=== PATIENT | female | born 1935 ===

== ENCOUNTER 2017-02-14 14:54 | Emergency (ER) | payer MEDICARE, MEDICAID ==
[2017-02-14 14:54] VITALS: BMI 25.0
[2017-02-14 15:54] VITALS: BP 139/71; PULSE 91; RESP 18; TEMP 98.8; O2SAT 98
[2017-02-14] MEDS ORDERED: Albuterol-Ipratrop 3 mg / 0.5 (3 ml) UD INH STA (16:18)
--- NOTE | 2017-02-14 16:25 | ED PDOC ---
HPI: General Adult Time Seen by Provider: 02/14/17 16:07 Chief Complaint (Nursing): Headache Chief Complaint (Provider): Fever/Cough History Per: Patient History/Exam Limitations: no limitations Onset/Duration Of Symptoms: Days (x3) Current Symptoms Are (Timing): Still Present Additional Complaint(s): Darleen Gonzalez is an 81 year old female that presents to the ED with a chief complaint of a cough with yellow phlegm and a tactile fever that she did not measure at home that she has been experiencing for the past three days. Patient also reports an associated sore throat that began along with the onset of her other symptoms, but resolved when she woke up this morning. She states that she took Tylenol at 2:00 PM today, and denies any chest pain or shortness of breath. Past Medical History Reviewed: Historical Data, Nursing Documentation, Vital Signs Vital Signs: Last Vital Signs Temp 98.8 F 02/14/17 15:51 Pulse 91 H 02/14/17 15:51 Resp 18 02/14/17 15:51 BP 139/71 02/14/17 15:51 Pulse Ox 98 02/14/17 16:28 - Medical History PMH: Anemia, Diabetes, HTN, Hyperlipidemia, Hypothyroidism Denies: Chronic Kidney Disease - Surgical History Surgical History: Appendectomy, Cholecystectomy - Family History Family History: States: Unknown Family Hx - Home Medications Home Medications: Ambulatory Orders Medication Instructions Recorded Alendronate [Fosamax] 70 mg PO DAILY 05/22/15 Anastrozole [Arimidex 1 mg Tab] 1 mg PO DAILY 05/22/15 Ergocalciferol [Vitamin D] 50,000 PO DAILY 05/22/15 Metformin Hydrochloride [Metformin] 850 mg PO DAILY 05/22/15 Albuterol 0.083% [Albuterol 0.083% 2.5 mg IH QID PRN #20 02/14/17 Inhal Elizabeth (2.5 mg/3 ml) UD] Azithromycin [Zithromax] 250 mg PO DAILY #6 tab 02/14/17 - Allergies Allergies/Adverse Reactions: Allergies Allergy/AdvReac Type Severity Reaction Status Date / Time No Known Allergies Allergy Verified 05/22/15 08:30 Review of Systems Constitutional: Positive for: Fever Cardiovascular: Negative for: Chest Pain Respiratory: Positive for: Cough (with yellow phlegm). Negative for: Shortness of Breath Physical Exam - Reviewed Nursing Documentation Reviewed: Yes Vital Signs Reviewed: Yes - Physical Exam Appears: Positive for: Non-toxic, No Acute Distress Head Exam: Positive for: ATRAUMATIC, NORMOCEPHALIC Skin: Positive for: Normal Color, Warm ENT: Positive for: Normal ENT Inspection Cardiovascular/Chest: Positive for: Regular Rate, Rhythm. Negative for: Murmur Respiratory: Positive for: Wheezing (diffuse bilateral wheezing in bases). Negative for: Normal Breath Sounds Neurologic/Psych: Positive for: Alert, Oriented. Negative for: Motor/Sensory Deficits - Laboratory Results Result Diagrams: 02/14/17 16:40 02/14/17 16:40 - ECG O2 Sat by Pulse Oximetry: 98 (RA) Pulse Ox Interpretation: Normal Medical Decision Making Medical Decision Making: Impression: Fever/Cough Plan: * CMP * CBC * Chest X-Ray * Albuterol 3 ml INH * Peak Flow Pre/Post Tx * Reevaluation CXR - Normal Scribe Attestation: Documented by Mackenzie East, acting as a scribe for Tomasa Hammer PA-C. Provider Scribe Attestation: All medical record entries made by the Scribe were at my direction and personally dictated by me. I have reviewed the chart and agree that the record accurately reflects my personal performance of the history, physical exam, medical decision making, and the department course for this patient. I have also personally directed, reviewed, and agree with the discharge instructions and disposition. Disposition - Clinical Impression Clinical Impression: URI (upper respiratory infection) - Patient ED Disposition Is Patient to be Admitted: No Counseled Patient/Family Regarding: Diagnosis, Need For Followup, Rx Given - Disposition Referrals: [facility] [Outside] [facility] [Outside] Disposition: Routine/Home Disposition Time: 17:52 Condition: GOOD Prescriptions: Albuterol 0.083% [Albuterol 0.083% Inhal Elizabeth (2.5 mg/3 ml) UD] 2.5 mg IH QID PRN #20 PRN Reason: Shortness Of Breath Azithromycin [Zithromax] 250 mg PO DAILY #6 tab Instructions: Upper Respiratory Infection (ED) Print Language: CANADIAN
[2017-02-14 16:45] LABS: BASO % 0.4 % (0.0-2.0); EOS # 0.1 K/uL (0.0-0.7); EOS % 1.8 % (0.0-4.0); HEMATOCRIT 28.4 % (34.0-47.0); LYMPH # 1.3 K/uL (1.0-4.3); LYMPH % 17.9 % (20.0-40.0); MEAN CELL VOLUME 86.9 fl (81.0-99.0); MEAN CORPUSCULAR HGB CONC 32.2 g/dL (33.0-37.0); MEAN PLATELET VOLUME 7.9 fl (7.2-11.7); MONO # 0.6 K/uL (0.0-0.8); NEUT # 5.1 K/uL (1.8-7.0); NEUT % 70.9 % (50.0-75.0); WHITE BLOOD COUNT 7.1 K/uL (4.8-10.8)
[2017-02-14 16:59] LABS: ALB/GLOB RATIO 1.3 (1.0-2.1); BILIRUBIN,TOTAL 0.5 mg/dl (0.2-1.3); CALCIUM 10.4 mg/dL (8.4-10.2); POTASSIUM 4.3 MMOL/L (3.6-5.0); TOTAL PROTEIN 8.1 G/DL (6.3-8.2)
--- NOTE | 2017-02-14 17:32 | RAD ---
HISTORY: cough, phelgm COMPARISON: Several prior studies, most recent chest x-ray performed 09/30/16, lung screening CT performed 04/12/16 TECHNIQUE: Chest PA and lateral FINDINGS: LUNGS: Hyperinflation may be seen in setting of COPD. Rounded density at the medial/posterior left lung base consistent with Bochdalek's hernia, similar to prior studies. No focal consolidation. Please note that chest x-ray has limited sensitivity for the detection of pulmonary masses. PLEURA: No significant pleural effusion identified. No definite pneumothorax . CARDIOVASCULAR: Heart size appears top normal. Atherosclerotic calcifications of the aortic knob. OSSEOUS STRUCTURES: Osseous demineralization. Degenerative changes. VISUALIZED UPPER ABDOMEN: Unremarkable. OTHER FINDINGS: None. IMPRESSION: No acute findings. Additional findings as above.
== END 2017-02-14 18:11 | disposition home or self-care (01) ==
LOC: H.ER 14:54
DX: J06.9 Acute upper respiratory infection, unspecified (principal); E03.9 Hypothyroidism, unspecified; E11.9 Type 2 diabetes mellitus without complications; E78.5 Hyperlipidemia, unspecified; I10 Essential (primary) hypertension; Z79.84 Long term (current) use of oral hypoglycemic drugs; Z79.899 Other long term (current) drug therapy

== ENCOUNTER 2017-05-14 14:54 | Emergency (ER) | payer MEDICARE, MEDICAID ==
[2017-05-14 14:55] VITALS: BMI 25.0
[2017-05-14 15:07] VITALS: BP 128/74; RESP 17; TEMP 98; O2SAT 99
--- NOTE | 2017-05-14 16:04 | RAD ---
PROCEDURE: Radiographs of the Left Shoulder HISTORY: left shoulder pain s/p fall COMPARISON: No prior. FINDINGS: BONES: Normal. No fracture. JOINTS: Normal. Glenohumeral and acromioclavicular joints preserved. No osteoarthritis. SOFT TISSUES: Normal. OTHER FINDINGS: None. IMPRESSION: Normal radiographs of the left shoulder.
--- NOTE | 2017-05-14 16:05 | RAD ---
PROCEDURE: Radiographs of the left elbow. HISTORY: pain s/p fall COMPARISON: No prior. FINDINGS: BONES: Normal. No fracture. JOINTS: Normal. No osteoarthritis. SOFT TISSUES: Normal. JOINT EFFUSION: None. OTHER FINDINGS: None IMPRESSION: Unremarkable radiographs of the left elbow.
[2017-05-14] MEDS ORDERED: Naproxen 500 MG TAB PO STA (16:46)
--- NOTE | 2017-05-14 17:26 | ED PDOC ---
Upper Extremity Pain/Injury Time Seen by Provider: 05/14/17 15:22 Chief Complaint (Nursing): Upper Extremity Problem/Injury Past Medical History Vital Signs: Last Vital Signs Temp 98 F 05/14/17 15:01 Pulse 115 H 05/14/17 15:01 Resp 17 05/14/17 15:01 BP 128/74 05/14/17 15:01 Pulse Ox 99 05/14/17 15:01 - Medical History PMH: Anemia, Diabetes, HTN, Hyperlipidemia, Hypothyroidism Denies: Chronic Kidney Disease - Surgical History Surgical History: Appendectomy, Cholecystectomy - Family History Family History: States: Unknown Family Hx - Home Medications Home Medications: Ambulatory Orders Medication Instructions Recorded Alendronate [Fosamax] 70 mg PO DAILY 05/22/15 Anastrozole [Arimidex 1 mg Tab] 1 mg PO DAILY 05/22/15 Ergocalciferol [Vitamin D] 50,000 PO DAILY 05/22/15 Metformin Hydrochloride [Metformin] 850 mg PO DAILY 05/22/15 Albuterol 0.083% [Albuterol 0.083% 2.5 mg IH QID PRN #20 02/14/17 Inhal Elizabeth (2.5 mg/3 ml) UD] Azithromycin [Zithromax] 250 mg PO DAILY #6 tab 02/14/17 Naproxen 500 mg PO Q12H PRN #10 ect 05/14/17 - Allergies Allergies/Adverse Reactions: Allergies Allergy/AdvReac Type Severity Reaction Status Date / Time No Known Allergies Allergy Verified 05/14/17 15:56 Physical Exam - Reviewed Nursing Documentation Reviewed: Yes Vital Signs Reviewed: Yes - Physical Exam Appears: Positive for: Well, Non-toxic, No Acute Distress Head Exam: Positive for: ATRAUMATIC, NORMAL INSPECTION, NORMOCEPHALIC Skin: Positive for: Normal Color, Warm, DRY Eye Exam: Positive for: Normal appearance, EOMI, PERRL ENT: Positive for: Normal ENT Inspection Neck: Positive for: Normal, Painless ROM Cardiovascular/Chest: Positive for: Regular Rate, Rhythm Respiratory: Positive for: Normal Breath Sounds. Negative for: Accessory Muscle Use, Respiratory Distress Back: Positive for: Normal Inspection Extremity: Negative for: Normal ROM (Decreased in the left shoulder due to pain) Neurologic/Psych: Positive for: Alert, Oriented - ECG O2 Sat by Pulse Oximetry: 99 Disposition - Clinical Impression Clinical Impression: Shoulder pain - Patient ED Disposition Is Patient to be Admitted: No Counseled Patient/Family Regarding: Diagnosis, Need For Followup - Disposition Disposition: Routine/Home Disposition Time: 17:24 Condition: GOOD Prescriptions: Naproxen 500 mg PO Q12H PRN #10 ect PRN Reason: Pain Instructions: Shoulder Pain (ED) Forms: [employer] ([place]ican) Print Language: TURKMEN
[2017-05-14] MEDS ORDERED: Naproxen 500 MG TAB PO ONE (17:34)
[2017-05-14 17:38] VITALS: PULSE 87
--- NOTE | 2017-05-15 08:04 | CARD ---
APPROVED REPORT EKG Measurement Heart [id number] <Conclusion> Sinus tachycardia Otherwise normal ECG
--- NOTE | 2017-05-15 14:57 | RAD ---
PROCEDURE: Radiographs of the left humerus. HISTORY: abnormality seen on elbow x-ray, fall COMPARISON: Comparison made with concurrent radiographs of the right shoulder and left elbow. FINDINGS: BONES: Normal. No fracture or focal lesion. SOFT TISSUES: Metallic clips again seen in the soft tissues left axilla OTHER FINDINGS: None. IMPRESSION: No evidence of acute displaced fracture nor dislocation. If symptoms persist or occult fracture suspected clinically recommend repeat radiographs in 5-10 days as most fractures should become radiographically evident in this timeframe.
== END 2017-05-14 17:37 | disposition home or self-care (01) ==
LOC: H.ER 14:54
DX: M25.512 Pain in left shoulder (principal); E11.9 Type 2 diabetes mellitus without complications; I10 Essential (primary) hypertension; D64.9 Anemia, unspecified

== ENCOUNTER 2017-08-14 10:40 | Inpatient (IN) | payer MEDICARE, MEDICAID ==
[2017-08-14 10:50] VITALS: BMI 23.3
[2017-08-14] MEDS ORDERED: Sodium Chloride 0.9% 1,000 ML IV STA (11:19)
--- NOTE | 2017-08-14 11:25 | ED PDOC ---
HPI: Abdomen Time Seen by Provider: 08/14/17 11:02 Chief Complaint (Nursing): Abdominal Pain Chief Complaint (Provider): Left lower quadrant pain and nausea History Per: Patient History/Exam Limitations: no limitations Onset/Duration Of Symptoms: Days (x1) Current Symptoms Are (Timing): Still Present Additional Complaint(s): Darleen Hurt is an 82 year old female with a past medical history of colon CA s/p resection, diabetes, and pancytopenia presenting to the ED for an evaluation of left lower quadrant pain associated with nausea and black diarrhea occurring since last night. The patient denies fever or chills. PMD: Todd Parr MD Past Medical History Reviewed: Historical Data, Nursing Documentation, Vital Signs Vital Signs: Last Vital Signs Temp 97.7 F 08/14/17 13:25 Pulse 67 08/14/17 13:25 Resp 18 08/14/17 13:25 BP 130/61 08/14/17 13:25 Pulse Ox 97 08/14/17 13:25 - Medical History PMH: Anemia, Diabetes, HTN, Hyperlipidemia, Hypothyroidism Denies: Chronic Kidney Disease Other PMH: colon CA s/p resection; pancytopenia - Surgical History Surgical History: Appendectomy, Cholecystectomy - Family History Family History: States: No Known Family Hx - Social History Current smoker - smoking cessation education provided: No Ex-Smoker (has not smoked in the last 12 months): No Alcohol: None Drugs: Denies - Home Medications Home Medications: Ambulatory Orders Medication Instructions Recorded Anastrozole [Arimidex 1 mg Tab] 1 mg PO DAILY 05/22/15 Atorvastatin [Lipitor] 10 mg PO HS 08/14/17 Cyanocobalamin [Vitamin B12 1000 1,000 mcg PO DAILY 08/14/17 mcg Tab] Ergocalciferol (Vitamin D2) 50,000 unit PO SAT 08/14/17 [Vitamin D2] Ezetimibe [Zetia] 10 mg PO DAILY 08/14/17 Fluticasone Nasal [Flonase] 2 spray MADIE DAILY PRN 08/14/17 Folic Acid [Folic Acid] 1 mg PO DAILY 08/14/17 Gemfibrozil [Lopid] 600 mg PO HS 08/14/17 GlipiZIDE [Glucotrol] 10 mg PO DAILY 08/14/17 Levothyroxine [Synthroid] 50 mcg PO DAILY 08/14/17 Linagliptin [Tradjenta] 5 mg PO DAILY 08/14/17 Loratadine [Claritin] 10 mg PO DAILY PRN 08/14/17 Pantoprazole Sodium [Protonix] 40 mg PO DAILY 08/14/17 metFORMIN [glucOPHAGE] 850 mg PO BID 08/14/17 - Allergies Allergies/Adverse Reactions: Allergies Allergy/AdvReac Type Severity Reaction Status Date / Time No Known Allergies Allergy Verified 05/14/17 15:56 Review of Systems ROS Statement: Except As Marked, All Systems Reviewed And Found Negative Constitutional: Negative for: Fever, Chills Gastrointestinal: Positive for: Nausea, Abdominal Pain (left lower quadrant pain ), Diarrhea (black diarrhea) Physical Exam - Reviewed Nursing Documentation Reviewed: Yes Vital Signs Reviewed: Yes - Physical Exam Appears: Positive for: Non-toxic, No Acute Distress Head Exam: Positive for: ATRAUMATIC, NORMOCEPHALIC Skin: Positive for: Normal Color, Warm, Dry Eye Exam: Positive for: Normal appearance, EOMI ENT: Positive for: Normal ENT Inspection Neck: Positive for: Normal, Painless ROM Cardiovascular/Chest: Positive for: Regular Rate, Rhythm, Chest Non Tender Respiratory: Positive for: Normal Breath Sounds. Negative for: Respiratory Distress Gastrointestinal/Abdominal: Positive for: Soft, Tenderness (to LLQ). Negative for: Mass (no masses palpable) Back: Positive for: Normal Inspection Extremity: Positive for: Normal ROM (full ROM) Neurologic/Psych: Positive for: Alert, Oriented (x3). Negative for: Motor/ Sensory Deficits - Laboratory Results Result Diagrams: 08/14/17 11:34 08/14/17 11:34 - ECG O2 Sat by Pulse Oximetry: 98 (RA) Pulse Ox Interpretation: Normal Medical Decision Making Medical Decision Making: Time: 11:02 Impression: Left lower quadrant pain Plan: * Type and Screen * CMP * CBC (with differential) * Morphine 2 mg IVP * NS 0.9% 1,000 ml IV 100 mls/hr * Pepcid 20 mg IVP * CT Abd & Pelvis IV Contrast Only * Reevaluation Scribe Attestation: Documented by Joyce Medina, acting as a scribe for Sage Marin MD. Provider Scribe Attestation: All medical record entries made by the Scribe were at my direction and personally dictated by me. I have reviewed the chart and agree that the record accurately reflects my personal performance of the history, physical exam, medical decision making, and the department course for this patient. I have also personally directed, reviewed, and agree with the discharge instructions and disposition. Disposition - Clinical Impression Clinical Impression: Diverticulitis - Patient ED Disposition Is Patient to be Admitted: Yes - Disposition Disposition Time: 14:25 Condition: FAIR Forms: [employer] (Maltese) - Pt Status Changed To: Hospital Disposition Of: Inpatient - Admit Certification Admit to Inpatient:: After my assessment, the patient will require hospitalization for at least two midnights. This is because of the severity of symptoms shown, intensity of services needed, and/or the medical risk in this patient being treated as an outpatient. - POA Present On Arrival: None
[2017-08-14 11:44] LABS: BASO % 0.5 % (0.0-2.0); EOS # 0.1 K/uL (0.0-0.7); EOS % 1.3 % (0.0-4.0); HEMATOCRIT 30.1 % (34.0-47.0); LYMPH # 1.2 K/uL (1.0-4.3); LYMPH % 18.3 % (20.0-40.0); MEAN CELL VOLUME 87.9 fl (81.0-99.0); MEAN PLATELET VOLUME 8.1 fl (7.2-11.7); MONO # 0.5 K/uL (0.0-0.8); MONO % 7.1 % (0.0-10.0); NEUT # 4.7 K/uL (1.8-7.0); NEUT % 72.8 % (50.0-75.0); NRBC % 0.1 % (0.0-0.0); RED CELL DISTRIBUTION WIDTH 15.7 % (11.5-14.5); WHITE BLOOD COUNT 6.5 K/uL (4.8-10.8)
[2017-08-14 12:05] LABS: ALB/GLOB RATIO 1.3 (1.0-2.1); BILIRUBIN,TOTAL 0.6 mg/dl (0.2-1.3); CALCIUM 10.3 mg/dL (8.4-10.2); POTASSIUM 4.6 MMOL/L (3.6-5.0); TOTAL PROTEIN 8.3 G/DL (6.3-8.2)
[2017-08-14] MEDS ORDERED: Iodixanol 320 MG/ML 100 ML BOTTLE IV ONE (12:25)
[2017-08-14] MEDS ORDERED: Ciprofloxacin 400mg/200ml D5W 400 MG/200 ML BAG IVPB STA (14:20)
[2017-08-14] MEDS ORDERED: metroNIDAZOLE 500mg/100ml NS 100 ML IVPB STA (14:20)
--- NOTE | 2017-08-14 14:27 | CT ---
PROCEDURE: CT scan of the abdomen and pelvis dated 08/14/2017. HISTORY: Left lower quadrant pain. Colon Ca COMPARISON: Comparison made with prior CT scan of the abdomen and pelvis dated 03/29/2013 TECHNIQUE: Contrast dose: 90 cc Visipaque 320 Radiation dose: Total exam DLP = 508.1 mGy-cm. This CT exam was performed using one or more of the following dose reduction techniques: Automated exposure control, adjustment of the mA and/or kV according to patient size, and/or use of iterative reconstruction technique. FINDINGS: LOWER THORAX: Minor scarring changes left lingular region. Lung bases are otherwise clear. No acute infiltrate. No effusion or basilar pneumothorax. LIVER: Liver exhibits normal size measuring approximately 17 cm in CC dimension. Mild diffuse fatty hepatic infiltration. GALLBLADDER AND BILE DUCTS: Gallbladder has been surgically resected with metallic clips in the gallbladder fossa. Common bile duct appears mildly dilated likely due to post cholecystectomy state advanced age. PANCREAS: The pancreas is atrophic and fatty replaced. No obvious pancreatic mass collection or calcification. Pancreatic duct at of the tibia proximally is slightly dilated ranging up to approximately 6.7 mm in greatest dimension at the level of the pancreatic head region. SPLEEN: Spleen exhibits normal size and attenuation pattern without mass collection or calcification. ADRENALS: No adrenal masses. KIDNEYS AND URETERS: Kidneys demonstrate symmetric nephrograms. No evidence of obstructing nephrolithiasis. Prominent bilateral extrarenal pelves. There are 2 low-attenuation cystic-appearing foci, located in the midpole region 1, anteromedial in location measuring up to 2.7 cm in greatest dimension and the other posteromedial in location measuring up to 14.4 mm in greatest dimension. . The 1st low-attenuation focus exhibits Hounsfield in the upper 20s and the 2nd smaller lesion low-attenuation focus exhibits Hounsfield units in the upper teens. . These foci probably represent hyperdense renal cysts and both were present on the prior exam however both have increased in size very slightly follow-up renal ultrasound could be performed for further evaluation and confirmation. VASCULATURE: Mild localized dilatation of the abdominal aorta in the and 2 locations, proximally measuring approximately 2.57 cm and the slightly more distally measuring approximately 2.52 cm. BOWEL: Evaluation of the bowel is somewhat limited due to the lack of oral contrast. Stomach is incompletely distended which presumably accounts for thick-walled appearance. Possibility of a gastritis or other intrinsic/ invasive wall lesion not excluded. Visualized loops of small bowel exhibit normal contour and relatively normal caliber however a few small bowel loops exhibit mild wall thickening -nonspecific. Rule out nonspecific enteritis. There appears to be of liquid fecal content in the cecum and proximal ascending colon. The transverse colon is collapsed which it may in part account for slight thick-walled appearance however mild nonspecific chronic inflammatory process cannot be excluded. Additionally, there are multiple colonic diverticula the bulk of which arise from the descending and sigmoid colon although a few scattered colonic diverticula also seen along the right colon as well. . Localize wall thickening of a short segment of the distal descending/ proximal sigmoid colon consistent with acute diverticulitis. APPENDIX: The appendix is not seen with certainty however no obvious inflammatory changes right lower quadrant of the abdomen. PERITONEUM: Unremarkable. No free fluid. No free air. LYMPH NODES: Unremarkable. No enlarged lymph nodes. Small fat containing umbilical hernia. BLADDER: The urinary bladder is physiologically distended. No evidence of intraluminal urinary bladder calculi. . REPRODUCTIVE: Apparent hysterectomy. BONES: Minor multilevel degenerative spondylosis of the thoracic spine. . OTHER FINDINGS: None. IMPRESSION: Findings consistent with acute diverticulitis involving a short segment of the distal descending and proximal sigmoid colon. There is also mild wall thickening of the transverse colon which may in part be due to incomplete distention however chronic inflammatory process cannot be completely excluded. Mild wall thickening of a no focal few proximal loops of small bowel; rule out enteritis. Fatty hepatic infiltration. Status post cholecystectomy with dilatation of the common bile duct and proximal pancreatic duct. Findings discussed with Dr. Marin at approximately 2:22 p.m. with written down and read back verification.
[2017-08-14] MEDS ORDERED: Glucagon Recombinant 1 mg Inj IM PRN (16:04)
[2017-08-14] MEDS ORDERED: Dextrose 50% SYRINGE Inj (50 ml) IV PRN (16:04)
--- NOTE | 2017-08-14 16:17 | CP.PCM.HP ---
History of Present Illness - History of Present Illness History of Present Illness: Darleen Hurt is an 82 yo F with pmh diabetes mellitus type 2, hyperlipidemia , hypothyroidism, CKD stage 3, breast cancer, colon cancer presented to ED with complaints of 9/10, constant abdominal pain and 7-8x episodes of black diarrhea that started around 6pm last night. Pt's last such BM was this morning. She states the pain/diarrhea is accompanied by fever (did not take with thermometer) and dizziness. Pt states that she has not had a similar episode happen in the past, and that sometimes there is bright red blood in her stool, which she was told "would happen from time to time because of the radiation." Pt's colon ca was treated at [facility] with Dr. Galvan. As per pt's daughter Cheri, pt received "radiation 19 times and had 96 hours of chemotherapy." Her last GI visit and colonoscopy were in 2016; sees Dr. Contreras. PMH: hypothyroidism, hyperlipidemia, diabetes mellitus, colon ca, breast ca Past Surg hx: breast cancer surgery 2013, cataract surgery. as per [facility] outpatient chart: hysterectomy, hernia repair, left foot surgery. Apparent cholecystectomy as seen on CT. Social hx: former smoker (6-7cig/day for 28 yrs, quit 27 years ago),denies alcohol or drug abuse. Family hx: father in accident, no medical problems. mother had cardiac problems. Electronic Field Service Engineer hx: post-menopausal, s/p hysterectomy as per [facility] outpatient chart. Allergies: NKDA Next of kin: Cheri Arevalo (daughter, works at [employer]): [phone]. 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 Present on Admission - Present on Admission Any Indicators Present on Admission: No Review of Systems - Review of Systems All systems: reviewed and no additional remarkable complaints except - Constitutional Constitutional: As Per HPI, Fever (subjective) - EENT Eyes: absent: Blurred Vision, Change in Vision - Cardiovascular Cardiovascular: absent: Chest Pain, Palpitations - Respiratory Respiratory: As Per HPI, Dyspnea on Exertion (as per HPI). absent: Cough - Gastrointestinal Gastrointestinal: As Per HPI, Abdominal Pain, Change in Bowel Habits, Change in Stool Character, Diarrhea - Reproductive: Female Reproductive:Female: Post Menopausal - Neurological Neurological: Dizziness Past Patient History - Past Medical History & Family History Past Medical History?: Yes - Past Social History Smoking Status: Former Smoker Alcohol: None Drugs: Denies - CARDIAC Hx Hypercholesterolemia: Yes - PULMONARY Hx Respiratory Disorders: No - NEUROLOGICAL Hx Neurological Disorder: No - HEENT Hx HEENT Problems: No - RENAL Hx Chronic Kidney Disease: Yes - ENDOCRINE/METABOLIC Hx Hypothyroidism: Yes - HEMATOLOGICAL/ONCOLOGICAL Hx Anemia: Yes - INTEGUMENTARY Hx Dermatological Problems: No - MUSCULOSKELETAL/RHEUMATOLOGICAL Hx Musculoskeletal Disorders: No - GASTROINTESTINAL Hx Gastrointestinal Disorders: Yes (hx colon cancer) - GENITOURINARY/GYNECOLOGICAL Hx Genitourinary Disorders: No - PSYCHIATRIC Hx Psychophysiologic Disorder: No Hx Emotional Abuse: No Hx Physical Abuse: No Hx Substance Use: No - SURGICAL HISTORY Hx Cholecystectomy: Yes - ANESTHESIA Hx Anesthesia: Yes Hx Anesthesia Reactions: No Hx Malignant Hyperthermia: No Meds Allergies/Adverse Reactions: Allergies Allergy/AdvReac Type Severity Reaction Status Date / Time No Known Allergies Allergy Verified 05/14/17 15:56 Physical Exam - Constitutional Appears: Non-toxic - Head Exam Head Exam: ATRAUMATIC, NORMAL INSPECTION - Eye Exam Eye Exam: EOMI, Normal appearance - ENT Exam ENT Exam: Mucous Membranes Moist - Neck Exam Neck exam: Positive for: Normal Inspection. Negative for: Lymphadenopathy - Respiratory Exam Respiratory Exam: Clear to Auscultation Bilateral, NORMAL BREATHING PATTERN. absent: Respiratory Distress - Cardiovascular Exam Cardiovascular Exam: REGULAR RHYTHM, +S1, +S2 - GI/Abdominal Exam GI & Abdominal Exam: Normal Bowel Sounds, Soft, Tenderness (diffuse but more tender in LLQ) - Extremities Exam Extremities exam: Positive for: normal inspection. Negative for: calf tenderness, pedal edema - Back Exam Back exam: NORMAL INSPECTION - Neurological Exam Neurological exam: Alert, Oriented x3 - Skin Skin Exam: Dry, Intact, Normal Color, Warm Results - Vital Signs Recent Vital Signs: Last Vital Signs Temp 97.7 F 1218/17 13:25 Pulse 67 08/14/17 13:25 Resp 18 08/14/17 13:25 BP 130/61 08/14/17 13:25 Pulse Ox 98 08/14/17 14:26 - Labs Result Diagrams: 08/14/17 11:34 08/14/17 11:34 Labs: Laboratory Results - last 24 hr 08/14/17 08/14/17 08/14/17 11:34 11:34 11:34 WBC 6.5 RBC 3.43 L Hgb 9.9 L Hct 30.1 L MCV 87.9 MCH 29.0 MCHC 33.0 RDW 15.7 H Plt Count 229 MPV 8.1 Neut % (Auto) 72.8 Lymph % (Auto) 18.3 L [place] % (Auto) 7.1 Eos % (Auto) 1.3 Baso % (Auto) 0.5 Neut # 4.7 Lymph # 1.2 [place] # 0.5 Eos # 0.1 Baso # 0.0 Sodium 140 Potassium 4.6 Chloride 103 Carbon Dioxide 24 Anion Gap 18 BUN 23 H Creatinine 1.1 Est GFR ( Amer) 58 Est GFR (Non-Af Amer) 48 Random Glucose 132 H Calcium 10.3 H Total Bilirubin 0.6 AST 27 ALT 33 Alkaline Phosphatase 120 Total Protein 8.3 H Albumin 4.8 Globulin 3.5 Albumin/Globulin Ratio 1.3 Blood Type A POSITIVE Antibody Screen Negative BBK History Checked Patient has bt Assessment & Plan - Assessment and Plan (Free Text) Assessment: 82 yo F with pmh DM2, hypothyroidism, hyperlipidemia, colon ca, breast ca admitted for suspected diverticulitis as seen on CT. Plan: #) Diverticulitis -CT abdomen: Findings consistent with acute diverticulitis involving short segment of distal descending and proximal sigmoid colon. Also mild wall thickening of traverse colon which may in part be due to incomplete distention, however chronic inflammatory process cannot be excluded. -NPO -Dextrose 5%/0.45% NS 1L @ 100 ml/hr -Flagyl 500mg IVPB Q8hrs, (received stat dose in ED), day 1 -Ciprofloxacin 400mg Q12 (received stat dose in ED), day 1 -Morphine 2mg IVP Q6 -Lipase -f/u am CMP #) Anemia -Reticulocyte count -f/u am CBC #) Diarrhea -Stool ova/parasites #) Diabetes Mellitus -Fingersticks ACHS -Coverage scale -Hypoglycemia protocol -Hold metformin and tradjenta #) Hypothyroidism -Resume home med levothyroxine 50 mcg daily #) CKD, Moderate, Stage 3A -GFR: 48 -monitor on CMP #) Hyperlipidemia -Hold statin #) History of breast cancer -Resume Arimidex (anastrozole) #) GI prophylaxis -Protonix IVP 40mg BID #) DVT prophylaxis -SCD, lovenox not started due to hx black stool, low hgb, possible bleed
[2017-08-14] MEDS ORDERED: Ciprofloxacin 400mg/200ml D5W 400 MG/200 ML BAG IVPB ONE (16:45)
[2017-08-14] MEDS: Dextrose 5%/0.45% NS 1,000 ML IV SCH (17:01)
[2017-08-14 17:14] LABS: VENOUS BLOOD GAS PCO2 53 mmHg (40-60); VENOUS BLOOD PH 7.33 (7.32-7.43)
[2017-08-14] MEDS ORDERED: metroNIDAZOLE 500mg/100ml NS 100 ML IVPB ONE (18:15)
[2017-08-14] MEDS: Ciprofloxacin 400mg/200ml D5W 400 MG/200 ML BAG IVPB SCH (21:35)
[2017-08-14] MEDS: Insulin Lispro (humaLOG) 100 Units/ml Inj SC SCH (22:24)
[2017-08-15] MEDS: Dextrose 5%/0.45% NS 1,000 ML IV SCH (00:05)
[2017-08-15] MEDS: metroNIDAZOLE 500mg/100ml NS 100 ML IVPB SCH ×3 (00:33→17:05)
[2017-08-15 05:41] LABS: HEMATOCRIT 26.8 % (34.0-47.0); MEAN CELL VOLUME 88.5 fl (81.0-99.0); MEAN CORPUSCULAR HEMOGLOBIN 28.7 pg (27.0-31.0); MEAN CORPUSCULAR HGB CONC 32.4 g/dL (33.0-37.0); RED CELL DISTRIBUTION WIDTH 15.9 % (11.5-14.5)
[2017-08-15 06:09] LABS: ALB/GLOB RATIO 1.3 (1.0-2.1); ALKALINE PHOSPHATASE 95 U/L (38-126); ALT/SGPT 35 U/L (9-52); AST/SGOT 22 U/L (14-36); BILIRUBIN,TOTAL 0.5 mg/dl (0.2-1.3); BLOOD UREA NITROGEN 14 mg/dl (7-17); CALCIUM 9.6 mg/dL (8.4-10.2); CARBON DIOXIDE 26 mmol/L (22-30); CHLORIDE 104 mmol/L (98-107); GFR AFRICAN-AMERICAN > 60; GLUCOSE,RANDOM 155 mg/dL (65-105); POTASSIUM 3.9 MMOL/L (3.6-5.0); SODIUM 141 mmol/l (132-148); TOTAL PROTEIN 7.1 G/DL (6.3-8.2)
[2017-08-15] MEDS: Insulin Lispro (humaLOG) 100 Units/ml Inj SC SCH ×4 (06:31→23:00)
[2017-08-15] MEDS: Levothyroxine 50 MCG TAB PO SCH (06:31)
--- NOTE | 2017-08-15 09:35 | CP.PCM.PN ---
Subjective - Date & Time of Evaluation Date of Evaluation: 08/15/17 Time of Evaluation: 07:30 - Subjective Subjective: Pt seen and evaluated at bedside, no acute events overnight. States she continues to feel "swelling and inflammation" in LLQ; states that her pain isn' t as severe as originally, rates it 5/10, and states it is helped by medication. Has not had any more black BM since admission. Denies headache, dizziness, chest pain, shortness of breath, palpitations, abdominal pain, leg/calf pain/swelling. Objective - Vital Signs/Intake and Output Vital Signs (last 24 hours): Temp Pulse Resp BP Pulse Ox 98.3 F 89 18 104/58 L 93 L 08/15/17 07:52 08/15/17 07:52 08/15/17 07:52 08/15/17 07:52 08/15/17 07:52 - Medications Medications: Current Medications Anastrozole (Arimidex 1 Mg Tab) 1 mg PO DAILY TAYO Cyanocobalamin (Vitamin B12 1000 Mcg Tab) 1,000 mcg PO DAILY TAYO Dextrose (Dextrose 50% Inj) 0 ml IV STAT PRN; Protocol PRN Reason: Hypoglycemia Protocol Dextrose (Glutose 15) 0 gm PO ONCE PRN; Protocol PRN Reason: Hypoglycemia Protocol Ergocalciferol (Drisdol 50,000 Intl Units Cap) 1 cap PO SAT TAYO Fluticasone Propionate (Flonase) 2 spr MADIE DAILY PRN PRN Reason: Allergy symptoms Folic Acid (Folic Acid) 1 mg PO DAILY TAYO Glucagon (Glucagen Diagnostic Kit) 0 mg IM STAT PRN; Protocol PRN Reason: Hypoglycemia Protocol Dextrose/Sodium Chloride (Dextrose 5%/0.45% Ns 1000 Ml) 1,000 mls @ 100 mls/hr IV .Q10H TAYO Last Admin: 08/15/17 00:05 Dose: 100 mls/hr Ciprofloxacin (Cipro 400mg/200ml Dsw) 400 mg in 200 mls @ 200 mls/hr IVPB Q12 TAYO PRN Reason: Protocol Last Admin: 08/14/17 21:35 Dose: 200 mls/hr Metronidazole (Flagyl 500mg/100ml Ns) 100 mls @ 100 mls/hr IVPB Q8 TAYO PRN Reason: Protocol Last Admin: 08/15/17 00:33 Dose: 100 mls/hr Insulin Human Lispro (Humalog) 0 units SC ACCU-CHECK TAYO PRN Reason: Protocol Last Admin: 08/15/17 06:31 Dose: Not Given Levothyroxine Sodium (Synthroid) 50 mcg PO DAILY@0630 [facility] Last Admin: 08/15/17 06:31 Dose: 50 mcg Loratadine (Claritin) 10 mg PO DAILY PRN PRN Reason: Allergy symptoms Morphine Sulfate (Morphine) 2 mg IVP Q6 PRN PRN Reason: Pain, moderate (4-7) Pantoprazole Sodium (Protonix Inj) 40 mg IVP BID [facility] - Labs Labs: 08/15/17 04:25 08/15/17 04:25 - Constitutional Appears: Non-toxic, No Acute Distress - Head Exam Head Exam: ATRAUMATIC, NORMAL INSPECTION, NORMOCEPHALIC - Eye Exam Eye Exam: EOMI, Normal appearance - Neck Exam Neck Exam: Normal Inspection. absent: Lymphadenopathy - Respiratory Exam Respiratory Exam: Clear to Ausculation Bilateral, NORMAL BREATHING PATTERN - Cardiovascular Exam Cardiovascular Exam: REGULAR RHYTHM, +S1, +S2 - GI/Abdominal Exam GI & Abdominal Exam: Soft - Extremities Exam Extremities Exam: Normal Capillary Refill, Normal Inspection. absent: Calf Tenderness, Pedal Edema - Neurological Exam Neurological Exam: Alert, Awake - Skin Skin Exam: Dry, Intact, Normal Color, Warm Assessment and Plan - Assessment and Plan (Free Text) Assessment: 82 yo F with pmh DM2, hypothyroidism, hyperlipidemia, colon ca, breast ca admitted for suspected diverticulitis as seen on CT. Plan: #) Diverticulitis -CT abdomen: Findings consistent with acute diverticulitis involving short segment of distal descending and proximal sigmoid colon. Also mild wall thickening of traverse colon which may in part be due to incomplete distention, however chronic inflammatory process cannot be excluded. -Advance diet to liquid -Dextrose 5%/0.45% NS 1L @ 100 ml/hr -Flagyl 500mg IVPB Q8hrs, (received stat dose in ED), day 2 -Ciprofloxacin 400mg Q12 (received stat dose in ED), day 2 -Morphine 2mg IVP Q6 -Lipase wnl #) Anemia -Reticulocyte count: 1.4 -Hgb 8.7 -FOBT -monitor hgb on CBC #) Diarrhea -Stool ova/parasites pending #) Diabetes Mellitus -Fingersticks ACHS -Coverage scale -Hypoglycemia protocol -Hold metformin and tradjenta #) Hypothyroidism -Resume home med levothyroxine 50 mcg daily #) CKD, Moderate, Stage 3A -GFR: 48 on admission -monitor on CMP #) Hyperlipidemia -Hold statin #) History of breast cancer -Resume Arimidex (anastrozole) #) GI prophylaxis -Protonix IVP 40mg BID #) DVT prophylaxis -SCD, lovenox not started due to hx black stool, low hgb, possible bleed
[2017-08-15] MEDS: Ciprofloxacin 400mg/200ml D5W 400 MG/200 ML BAG IVPB SCH ×2 (11:06→21:33)
--- NOTE | 2017-08-15 14:49 | PQF GENQUE ---
Dr. Beaver, Please clarify the type of anemia: if known after the work up is completed :i.e. Blood loss anemia, acute Blood loss anemia, chronic Chronic anemia Deficiency anemia (please specify type) Due to/in/with antineoplastic chemotherapy Due to/in/with chronic kidney disease Due to/in/with kidney failure Due to/in/with neoplastic disease Iron deficiency anemia Macrocytic anemia Microcytic anemia Normocytic anemia Postoperative blood loss anemia Pernicious anemia Other anemia (please specify) Clinically unable to determine Unknown 08/15 Progress note: diagnoses include :1) Diverticulitis:-CT abdomen: Findings consistent with acute diverticulitis involving short segment of distal descending and proximal sigmoid colondescending and proximal sigmoid colon----- 2) Anemia -Reticulocyte count: 1.4 -Hgb 8.7 -FOBT This form is a permanent part of the medical record Clarification of your documentation is requested to better reflect the severity of illness and intensity of treatment of your patient. Indicators present [] Specify: [] [] Specify: [] [] Specify: [] [] Specify: [] Location in the medical record that reflects the above clinical findings: [] Treatment Provided: [] PHYSICIAN'S RESPONSE acute on chronic irn def anemia Based on your medical judgment of the clinical indicators outlined above please clarify the following: [] Practitioner response [] If unable to determine, please check the box, sign and date. Present On Admission (POA) Indicator: [] Present at the time of admission [] Not present at the time of admission [] Clinically Undetermined In responding to this query, please exercise your independent professional judgment. The fact that a question is asked does not imply that any particular answer is desired or expected. Thank you for your clarification on this documentation. If you have any questions please call. * Thank you, Kareen Gallegos RN ext. #[phone] MTDD
[2017-08-16] MEDS: metroNIDAZOLE 500mg/100ml NS 100 ML IVPB SCH ×3 (00:53→11:55)
[2017-08-16] MEDS: Levothyroxine 50 MCG TAB PO SCH (05:56)
[2017-08-16 05:59] LABS: ALB/GLOB RATIO 1.3 (1.0-2.1); BILIRUBIN,TOTAL 0.4 mg/dl (0.2-1.3); CALCIUM 9.6 mg/dL (8.4-10.2); POTASSIUM 4.4 MMOL/L (3.6-5.0); TOTAL PROTEIN 7.6 G/DL (6.3-8.2)
--- NOTE | 2017-08-16 07:25 | CP.PCM.PN ---
Subjective - Date & Time of Evaluation Date of Evaluation: 08/16/17 Time of Evaluation: 07:30 - Subjective Subjective: 82 YO F is seen at bedside appears to be doing better. Patient expresses that she would like to go home. Has been tolerating PO intake. Denies any nausea, vomiting, diarrhea. Seen by GI will need a colonoscopy outpatient. Objective - Vital Signs/Intake and Output Vital Signs (last 24 hours): Temp Pulse Resp BP Pulse Ox 97.4 F L 63 18 109/61 96 08/16/17 04:59 08/16/17 04:59 08/16/17 04:59 08/16/17 04:59 08/16/17 04:59 - Medications Medications: Current Medications Anastrozole (Arimidex 1 Mg Tab) 1 mg PO DAILY [facility] Last Admin: 08/15/17 11:04 Dose: 1 mg Cyanocobalamin (Vitamin B12 1000 Mcg Tab) 1,000 mcg PO DAILY [facility] Last Admin: 08/15/17 11:07 Dose: 1,000 mcg Dextrose (Dextrose 50% Inj) 0 ml IV STAT PRN; Protocol PRN Reason: Hypoglycemia Protocol Dextrose (Glutose 15) 0 gm PO ONCE PRN; Protocol PRN Reason: Hypoglycemia Protocol Ergocalciferol (Drisdol 50,000 Intl Units Cap) 1 cap PO SAT [facility] Fluticasone Propionate (Flonase) 2 spr MADIE DAILY PRN PRN Reason: Allergy symptoms Folic Acid (Folic Acid) 1 mg PO DAILY [facility] Last Admin: 08/15/17 11:07 Dose: 1 mg Glucagon (Glucagen Diagnostic Kit) 0 mg IM STAT PRN; Protocol PRN Reason: Hypoglycemia Protocol Dextrose/Sodium Chloride (Dextrose 5%/0.45% Ns 1000 Ml) 1,000 mls @ 100 mls/hr IV .Q10H [facility] Last Admin: 08/15/17 00:05 Dose: 100 mls/hr Ciprofloxacin (Cipro 400mg/200ml Dsw) 400 mg in 200 mls @ 200 mls/hr IVPB Q12 TAYO PRN Reason: Protocol Last Admin: 08/15/17 21:33 Dose: 200 mls/hr Metronidazole (Flagyl 500mg/100ml Ns) 100 mls @ 100 mls/hr IVPB Q8 TAYO PRN Reason: Protocol Last Admin: 08/16/17 00:53 Dose: 100 mls/hr Insulin Human Lispro (Humalog) 0 units SC ACCU-CHECK [facility] PRN Reason: Protocol Last Admin: 08/15/17 23:00 Dose: Not Given Levothyroxine Sodium (Synthroid) 50 mcg PO DAILY@0630 [facility] Last Admin: 08/16/17 05:56 Dose: 50 mcg Loratadine (Claritin) 10 mg PO DAILY PRN PRN Reason: Allergy symptoms Morphine Sulfate (Morphine) 2 mg IVP Q6 PRN PRN Reason: Pain, moderate (4-7) Pantoprazole Sodium (Protonix Inj) 40 mg IVP BID [facility] Last Admin: 08/15/17 17:04 Dose: 40 mg - Labs Labs: 08/15/17 04:25 08/16/17 04:30 - Constitutional Appears: No Acute Distress - Neck Exam Neck Exam: Full ROM, Normal Inspection - Respiratory Exam Respiratory Exam: Clear to Ausculation Bilateral. absent: Rhonchi, Wheezes - Cardiovascular Exam Cardiovascular Exam: REGULAR RHYTHM, +S1, +S2 - GI/Abdominal Exam GI & Abdominal Exam: Soft - Extremities Exam Extremities Exam: Full ROM, Normal Inspection. absent: Calf Tenderness - Neurological Exam Neurological Exam: Alert, Awake, Oriented x3 - Skin Skin Exam: Normal Color, Warm Assessment and Plan - Assessment and Plan (Free Text) Assessment: 82 yo F with pmh DM2, hypothyroidism, hyperlipidemia, colon ca, breast ca admitted for suspected diverticulitis as seen on CT. Plan: #) Diverticulitis -CT abdomen: Findings consistent with acute diverticulitis involving short segment of distal descending and proximal sigmoid colon. Also mild wall thickening of traverse colon which may in part be due to incomplete distention, however chronic inflammatory process cannot be excluded. -Advance diet to liquid -Dextrose 5%/0.45% NS 1L @ 100 ml/hr -Flagyl 500mg IVPB Q8hrs, (received stat dose in ED), day 3 -Ciprofloxacin 400mg Q12 (received stat dose in ED), day 3 -Morphine 2mg IVP Q6 -Lipase wnl #) Anemia -Reticulocyte count: 1.4 -Hgb 8.7 -FOBT -monitor hgb on CBC #) Diarrhea -Stool ova/parasites pending #) Diabetes Mellitus -Fingersticks ACHS -Coverage scale -Hypoglycemia protocol -Hold metformin and tradjenta #) Hypothyroidism -Resume home med levothyroxine 50 mcg daily #) CKD, Moderate, Stage 3A -GFR: 48 on admission -monitor on CMP #) Hyperlipidemia -Hold statin #) History of breast cancer -Resume Arimidex (anastrozole) #) GI prophylaxis -Protonix IVP 40mg BID #) DVT prophylaxis -SCD, lovenox not started due to hx black stool, low hgb, possible bleed
[2017-08-16] MEDS: Ciprofloxacin 400mg/200ml D5W 400 MG/200 ML BAG IVPB SCH (09:02)
[2017-08-16] MEDS: Insulin Lispro (humaLOG) 100 Units/ml Inj SC SCH ×3 (09:06→13:05)
[2017-08-16] MEDS: Dextrose 5%/0.45% NS 1,000 ML IV SCH (11:50)
[2017-08-16 11:53] LABS: HEMATOCRIT 28.1 % (34.0-47.0); MEAN CELL VOLUME 87.8 fl (81.0-99.0); MEAN CORPUSCULAR HEMOGLOBIN 28.9 pg (27.0-31.0); MEAN CORPUSCULAR HGB CONC 32.9 g/dL (33.0-37.0); RED CELL DISTRIBUTION WIDTH 15.7 % (11.5-14.5); WHITE BLOOD COUNT 4.3 K/uL (4.8-10.8)
[2017-08-16 12:59] VITALS: RESP 20
[2017-08-16 15:40] VITALS: BP 109/66; PULSE 73; TEMP 98; O2SAT 95
--- NOTE | 2017-08-16 16:33 | CP.PCM.DIS ---
Provider - Provider Date of Admission: 08/14/17 14:24 Attending physician: Tequila Beaver MD Time Spent in preparation of Discharge (in minutes): 30 Diagnosis - Discharge Diagnosis (1) Diverticulitis Status: Acute Hospital Course - Lab Results Lab Results: Micro Results 08/14/17 17:10 Blood-Venous Blood Culture - Preliminary NO GROWTH AFTER 24 HOURS Most Recent Lab Values WBC 4.3 K/uL (4.8-10.8) L 08/16/17 11:42 RBC 3.21 Mil/uL (3.80-5.20) L 08/16/17 11:42 Hgb 9.3 g/dL (12.0-16.0) L 08/16/17 11:42 Hct 28.1 % (34.0-47.0) L 08/16/17 11:42 MCV 87.8 fl (81.0-99.0) 08/16/17 11:42 MCH 28.9 pg (27.0-31.0) 08/16/17 11:42 MCHC 32.9 g/dL (33.0-37.0) L 08/16/17 11:42 RDW 15.7 % (11.5-14.5) H 08/16/17 11:42 Plt Count 216 K/uL (130-400) 08/16/17 11:42 MPV 8.1 fl (7.2-11.7) 08/14/17 11:34 Neut % (Auto) 72.8 % (50.0-75.0) 08/14/17 11:34 Lymph % (Auto) 18.3 % (20.0-40.0) L 08/14/17 11:34 [place] % (Auto) 7.1 % (0.0-10.0) 08/14/17 11:34 Eos % (Auto) 1.3 % (0.0-4.0) 08/14/17 11:34 Baso % (Auto) 0.5 % (0.0-2.0) 08/14/17 11:34 Neut # 4.7 K/uL (1.8-7.0) 08/14/17 11:34 Lymph # 1.2 K/uL (1.0-4.3) 08/14/17 11:34 [place] # 0.5 K/uL (0.0-0.8) 08/14/17 11:34 Eos # 0.1 K/uL (0.0-0.7) 08/14/17 11:34 Baso # 0.0 K/uL (0.0-0.2) 08/14/17 11:34 Retic Count 1.4 % (0.5-1.5) 08/14/17 16:36 PT 13.9 Seconds (9.8-13.1) H 08/16/17 11:42 INR 1.3 (0.9-1.2) H 08/16/17 11:42 pO2 29 mm/Hg (30-55) L 08/14/17 17:09 VBG pH 7.33 (7.32-7.43) 08/14/17 17:09 VBG pCO2 53 mmHg (40-60) 08/14/17 17:09 VBG HCO3 24.4 mmol/L 08/14/17 17:09 VBG Total CO2 29.5 mmol/L (22-28) H 08/14/17 17:09 VBG O2 Sat (Calc) 57.9 % (40-65) 08/14/17 17:09 VBG Base Excess 1.0 mmol/L (0.0-2.0) 08/14/17 17:09 VBG Potassium 4.4 mmol/L (3.6-5.2) 08/14/17 17:09 Sodium 140.0 mmol/L (132-148) 08/14/17 17:09 Chloride 108.0 mmol/L (98-107) H 08/14/17 17:09 Glucose 93 mg/dL (65-105) 08/14/17 17:09 Lactate 1.5 mmol/L (0.7-2.1) 08/14/17 17:09 FiO2 21.0 % 08/14/17 17:09 Sodium 141 mmol/l (132-148) 08/16/17 04:30 Potassium 4.4 MMOL/L (3.6-5.0) 08/16/17 04:30 Chloride 103 mmol/L (98-107) 08/16/17 04:30 Carbon Dioxide 27 mmol/L (22-30) 08/16/17 04:30 Anion Gap 15 (10-20) 08/16/17 04:30 BUN 11 mg/dl (7-17) 08/16/17 04:30 Creatinine 1.1 mg/dl (0.7-1.2) 08/16/17 04:30 Est GFR ( Amer) 58 08/16/17 04:30 Est GFR (Non-Af Amer) 48 08/16/17 04:30 POC Glucose (mg/dL) 197 mg/dL (65-110) H 08/16/17 12:06 Random Glucose 157 mg/dL (65-105) H 08/16/17 04:30 Calcium 9.6 mg/dL (8.4-10.2) 08/16/17 04:30 Total Bilirubin 0.4 mg/dl (0.2-1.3) 08/16/17 04:30 AST 38 U/L (14-36) H D 08/16/17 04:30 ALT 36 U/L (9-52) 08/16/17 04:30 Alkaline Phosphatase 101 U/L (38-126) 08/16/17 04:30 Total Protein 7.6 G/DL (6.3-8.2) 08/16/17 04:30 Albumin 4.2 g/dL (3.5-5.0) 08/16/17 04:30 Globulin 3.4 gm/dL (2.2-3.9) 08/16/17 04:30 Albumin/Globulin Ratio 1.3 (1.0-2.1) 08/16/17 04:30 Lipase 232 U/L (23-300) 08/14/17 16:36 Venous Blood Potassium 4.4 mmol/L (3.6-5.2) 08/14/17 17:09 Stool Occult Blood Negative (NEGATIVE) 08/16/17 09:48 Blood Type A POSITIVE 08/14/17 11:34 Antibody Screen Negative 08/14/17 11:34 BBK History Checked Patient has bt 08/14/17 11:34 - Hospital Course Hospital Course: Darleen Hurt is an 82 yo F with pmh diabetes mellitus type 2, hyperlipidemia , hypothyroidism, CKD stage 3, breast cancer, colon cancer who was admitted for abdominal pain, nausea, vomiting. CT abdomen: Findings consistent with acute diverticulitis involving short segment of distal descending and proximal sigmoid colon. Also mild wall thickening of traverse colon which may in part be due to incomplete distention, however chronic inflammatory process cannot be excluded. Patient was put on IV antibiotics (Cipro and Flagyl). Pain has improved. Patient is doing well. Has not had any blood in stool during stay. Discharge Exam - Head Exam Head Exam: ATRAUMATIC, NORMAL INSPECTION, NORMOCEPHALIC - Eye Exam Eye Exam: Normal appearance - Respiratory Exam Respiratory Exam: Rhonchi, NORMAL BREATHING PATTERN. absent: Rales, Wheezes, Respiratory Distress - Cardiovascular Exam Cardiovascular Exam: REGULAR RHYTHM, +S1, +S2 - GI/Abdominal Exam GI & Abdominal Exam: Soft - Neurological Exam Neurological exam: Alert, Oriented x3 - Skin Skin Exam: Normal Color Discharge Plan - Discharge Medications Prescriptions: Ciprofloxacin [Cipro] 500 mg PO Q12 11 Days tab metroNIDAZOLE [Flagyl] 500 mg PO Q12 11 Days tab - Follow Up Plan Condition: FAIR Disposition: HOME/ ROUTINE Instructions: Diverticulitis (DC) Additional Instructions: Patient instructed by GI to follow up outpatient for colonoscopy. Dr ibrahim [phone]. - Cipro and Flagyl for 11 days Referrals: Pedro Ibrahim MD, PhD [Staff Provider] -
[2017-08-19] MEDS ORDERED: Ergocalciferol 50,000 Intl Units Cap PO SCH (09:00)
== END 2017-08-16 16:00 | disposition home or self-care (01) | DRG 392 ==
LOC: H.ER 10:40 → H.ERHOLD 14:24 → H.TEL 18:36
PROVIDERS: ADMIT Family Medicine Geriatric Medicine; ATTEND Family Medicine Geriatric Medicine
DX: K57.32 Diverticulitis of large intestine without perforation or abscess without bleeding (principal); E11.22 Type 2 diabetes mellitus with diabetic chronic kidney disease; D63.8 Anemia in other chronic diseases classified elsewhere; N18.3 Chronic kidney disease, stage 3 (moderate); E03.9 Hypothyroidism, unspecified; E78.5 Hyperlipidemia, unspecified; I12.9 Hypertensive chronic kidney disease with stage 1 through stage 4 chronic kidney disease, or unspecified chronic kidney disease; Z87.891 Personal history of nicotine dependence; Z85.3 Personal history of malignant neoplasm of breast; Z85.038 Personal history of other malignant neoplasm of large intestine; D50.9 Iron deficiency anemia, unspecified; R19.7 Diarrhea, unspecified

== ENCOUNTER 2017-11-10 07:43 | Day surgery (SDC) | payer MEDICARE, MEDICAID ==
[2017-11-10] MEDS ORDERED: Lactated Ringer's 500 ML IV ONE (08:45)
[2017-11-10] MEDS ORDERED: Lidocaine PF 2% (5 ml) Inj (For Cardiac Arrhy) IV ONE (10:02)
[2017-11-10] MEDS ORDERED: Propofol 10 mg/ml Inj (20 ML) ONE (10:02)
[2017-11-10 10:23] VITALS: TEMP 96.9
[2017-11-10 10:34] VITALS: BP 124/62; PULSE 70; RESP 12; O2SAT 100
== END 2017-11-10 10:46 | disposition home or self-care (01) ==
LOC: H.ENDO 07:43 → EDSTATUS 10:30 → H.ENDO 10:46
PROVIDERS: ATTEND Internal Medicine Gastroenterology
DX: K21.0 Gastro-esophageal reflux disease with esophagitis (principal); E03.9 Hypothyroidism, unspecified; E11.9 Type 2 diabetes mellitus without complications; R93.3 Abnormal findings on diagnostic imaging of other parts of digestive tract; K31.9 Disease of stomach and duodenum, unspecified
CPT/HCPCS: 43239; 82948; 88305; J2704; J7120

== ENCOUNTER 2017-11-24 06:57 | Day surgery (SDC) | payer MEDICARE, MEDICAID ==
[2017-11-24 07:39] VITALS: BMI 23.8
[2017-11-24] MEDS ORDERED: Lactated Ringer's 500 ML IV ONE (07:42)
[2017-11-24] MEDS ORDERED: Propofol 10 mg/ml Inj (20 ML) ONE (09:09)
[2017-11-24] MEDS ORDERED: Lidocaine PF 2% (5 ml) Inj (For Cardiac Arrhy) IV ONE (09:09)
[2017-11-24] MEDS ORDERED: Simethicone 40 mg/0.6 ml Liquid (30 ml) ONE (09:23)
[2017-11-24 09:48] VITALS: TEMP 96.8; O2SAT 96
[2017-11-24 09:49] VITALS: BP 135/55; PULSE 72; RESP 18
== END 2017-11-24 13:31 | disposition home or self-care (01) ==
LOC: H.ENDO 06:57
PROVIDERS: ATTEND Internal Medicine Gastroenterology
DX: Z86.010 Personal history of colon polyps (principal); E11.9 Type 2 diabetes mellitus without complications; K64.8 Other hemorrhoids; K62.89 Other specified diseases of anus and rectum; K57.30 Diverticulosis of large intestine without perforation or abscess without bleeding
CPT/HCPCS: 45380; 82948; 88305; J2704; J7120

== ENCOUNTER 2018-05-13 16:49 | Emergency (ER) | payer MEDICARE, MEDICAID ==
[2018-05-13 16:49] VITALS: BMI 23.8
[2018-05-13 17:01] VITALS: TEMP 98.6
--- NOTE | 2018-05-13 17:22 | ED PDOC ---
HPI: Abdomen Time Seen by Provider: 05/13/18 17:01 Chief Complaint (Nursing): Back Pain Chief Complaint (Provider): Abdominal pain History Per: Patient, Family History/Exam Limitations: no limitations Additional Complaint(s): Pt presents with family members with c/o R lower back pain X 3 days and abdominal pain associated with diarrhea X 1 month, blood in stool and upon wiping intermittently. Denies fever, nausea, vomiting, symptoms. Pt with h/ o colorectal CA 10 years ago, treated with chemo and radiation. Abnormal Vaginal Bleeding: No Past Medical History Reviewed: Nursing Documentation, Vital Signs Vital Signs: Last Vital Signs Temp 98.6 F 05/13/18 16:59 Pulse 70 05/13/18 22:25 Resp 16 05/13/18 22:25 BP 134/67 05/13/18 22:25 Pulse Ox 99 05/13/18 22:46 - Medical History PMH: Anemia, Diabetes, HTN, Hypercholesterolemia, Hyperlipidemia, Hypothyroidism Denies: Chronic Kidney Disease Other PMH: Colorectal CA (remission) - Surgical History Surgical History: Appendectomy, Cholecystectomy, Endoscopy - Family History Family History: States: Unknown Family Hx - Living Arrangements Living Arrangements: With Family - Social History Current smoker - smoking cessation education provided: No Alcohol: None - Home Medications Home Medications: Ambulatory Orders Medication Instructions Recorded Anastrozole [Arimidex] 1 mg PO DAILY 11/10/17 Atorvastatin [Lipitor] 10 mg PO DAILY 11/10/17 Ezetimibe [Zetia] 10 mg PO DAILY 11/10/17 Linagliptin [Tradjenta] 5 mg PO DAILY 11/10/17 Loratadine [Claritin] 10 mg PO DAILY 11/10/17 Pantoprazole [Protonix] 40 mg PO DAILY 11/10/17 metFORMIN [glucOPHAGE] 850 mg PO BID 11/10/17 - Allergies Allergies/Adverse Reactions: Allergies Allergy/AdvReac Type Severity Reaction Status Date / Time tuberculin,PPD,multi-puncture Allergy SWELLING Verified 05/13/18 19:12 Review of Systems Constitutional: Negative for: Fever, Chills Cardiovascular: Negative for: Chest Pain Respiratory: Negative for: Cough, Shortness of Breath Gastrointestinal: Positive for: Abdominal Pain, Diarrhea, Hematochezia. Negative for: Nausea, Vomiting, Constipation, Melena, Hematemesis, Rectal Pain Genitourinary Female: Negative for: Dysuria, Hematuria, Vaginal Bleeding Skin: Negative for: Rash, Lesions Neurological: Negative for: Weakness, Numbness, Headache Physical Exam - Reviewed Nursing Documentation Reviewed: Yes - Physical Exam Appears: Positive for: Well, No Acute Distress Skin: Positive for: Normal Color, Warm, Dry Eye Exam: Positive for: Normal appearance, EOMI, PERRL Cardiovascular/Chest: Positive for: Regular Rate, Rhythm Respiratory: Positive for: Normal Breath Sounds Gastrointestinal/Abdominal: Positive for: Bowel Sounds, Soft, Tenderness (BLQ). Negative for: Guarding, Rebound Rectal: Positive for: Blood Streaked Stool, Hemorrhoids, Tenderness. Negative for: Black Stool Extremity: Positive for: Normal ROM Neurologic/Psych: Positive for: Alert, Oriented - Laboratory Results Result Diagrams: 05/13/18 18:05 05/13/18 18:05 - ECG O2 Sat by Pulse Oximetry: 99 Medical Decision Making Medical Decision Makin yo female with abdominal pain, back pain and LGIB. - labs - EKG - CXR - CT abd/pelvis - Morphine Disposition - Clinical Impression Clinical Impression: Abdominal pain - Disposition Referrals: Pedro Contreras MD, PhD [Staff Provider] - Disposition: Transfer of Care Disposition Time: 19:00 Condition: STABLE Instructions: High Fiber Diet, Diverticulosis Forms: Rebls (Sami) Patient Signed Over To: Fredy Peña Handoff Comments: Pending CT.
[2018-05-13 18:24] LABS: BASO % 0.4 % (0.0-2.0); EOS # 0.1 K/uL (0.0-0.7); EOS % 2.8 % (0.0-4.0); HEMOGLOBIN 9.7 g/dL (12.0-16.0); LYMPH # 1.4 K/uL (1.0-4.3); LYMPH % 34.7 % (20.0-40.0); MEAN CELL VOLUME 92.6 fl (81.0-99.0); MEAN CORPUSCULAR HEMOGLOBIN 31.4 pg (27.0-31.0); MEAN CORPUSCULAR HGB CONC 33.9 g/dL (33.0-37.0); MONO # 0.4 K/uL (0.0-0.8); MONO % 9.3 % (0.0-10.0); NEUT # 2.2 K/uL (1.8-7.0); NEUT % 52.8 % (50.0-75.0); NRBC % 0.3 % (0.0-0.0); RBC 3.07 Mil/uL (3.80-5.20); RED CELL DISTRIBUTION WIDTH 14.1 % (11.5-14.5); WHITE BLOOD COUNT 4.1 K/uL (4.8-10.8)
[2018-05-13 18:35] LABS: ALB/GLOB RATIO 1.2 (1.0-2.1); ALBUMIN 4.4 g/dL (3.5-5.0); BLOOD UREA NITROGEN 21 mg/dl (7-17); CALCIUM 10.1 mg/dL (8.4-10.2); GFR NON-AFRICAN AMERICAN 53
[2018-05-13 18:36] LABS: ALT/SGPT 32 U/L (9-52); AST/SGOT 42 U/L (14-36)
--- NOTE | 2018-05-13 19:12 | ED PDOC ---
"- Laboratory Results Result Diagrams: 05/13/18 18:05 05/13/18 18:05 - ECG O2 Sat by Pulse Oximetry: 99 Medical Decision Making Medical Decision Makin:00 Patient endorsed to me from Dr. Easton. Pending CT scan and reevaluation. 22:00 EXAM: CT Abdomen and Pelvis With Intravenous Contrast CLINICAL HISTORY: 82 years old, female; Pain; Abdominal pain; Localized; Right lower quadrant (rlq ); Additional info: Blq pain, lgib TECHNIQUE: Axial computed tomography images of the abdomen and pelvis with intravenous contrast. All CT scans at this facility use at least one of these dose optimization techniques: automated exposure control; mA and/or kV adjustment per patient size (includes targeted exams where dose is matched to clinical indication); or iterative reconstruction. Coronal and sagittal reformatted images were created and reviewed. CONTRAST: 95 mL of OMNIPAQUE-300 administered intravenously. COMPARISON: No relevant prior studies available. FINDINGS: Lung bases: Dependent lung atelectasis. ABDOMEN: Liver: Intact. No mass. Gallbladder and bile ducts: Cholecystectomy. No ductal dilation. Pancreas: No mass. No ductal dilation. Spleen: No splenomegaly. Adrenals: No mass. Kidneys and ureters: Right kidney anterior mid pole cyst approximately 3 cm appeared no right or left hydronephrosis. Stomach and bowel: Moderate diverticuli are seen in the sigmoid and/or descending colon. No pericolonic stranding is seen to suggest diverticulits. PELVIS: Appendix: No findings to suggest acute appendicitis. Appendix not seen. Bladder: No mass. Reproductive: Unremarkable as visualized. YONATHAN FLOR | Final Radiology Report CONFIDENTIALITY STATEMENT This report is intended only for use by the referring physician, and only in accordance with law. If you received this in error, call [phone]. Page 2 of 2 ABDOMEN and PELVIS: Intraperitoneal space: No free air. No significant fluid collection. Bones/joints: No acute fracture. No dislocation. Soft tissues: No radiopaque foreign body. Vasculature: Moderate abdominal aorta vascular calcifications. Attack at tortuosity mid to distal common aorta measuring up to 2.5 cm. Lymph nodes: No enlarged lymph nodes. IMPRESSION: 1. Moderate diverticuli are seen in the sigmoid and/or descending colon. No pericolonic stranding is seen to suggest diverticulits. 2. No acute inflammatory changes in abdomen or pelvis. Thank you for allowing us to participate in the care of your patient. Dictated and Authenticated by: Wyatt Hanna MD 05/13/2018 9:45 PM Eastern Time ([place] & [place]) Patient re-evaluated at bedside, BP 134/67, HR 70 --Patient is feeling much better --Spoke with Dr. Marr who is covering Dr. Contreras, states that with stable vitals, Hgb, and appearance, patient can be followed up as outpatient. Dr. Marr will arrange for followup for the patient in the morning. --Patient and daughter in agreement with plan --Well appearing, normal vitals upon discharge Scribe Attestation: Documented by Milton Medina acting as a scribe for Fredy Peña MD. Provider Scribe Attestation: All medical record entries made by the Scribe were at my direction and personally dictated by me. I have reviewed the chart and agree that the record accurately reflects my personal performance of the history, physical exam, medical decision making, and the department course for this patient. I have also personally directed, reviewed, and agree with the discharge instructions and disposition. Disposition - Clinical Impression Clinical Impression: Diverticulosis - POA Present On Arrival: None - Disposition Referrals: Pedro Contreras MD, PhD [Staff Provider] - Disposition: Routine/Home Disposition Time: 22:45 Condition: STABLE Instructions: Diverticulosis, High Fiber Diet Forms: Sekal AS (Persian)"
[2018-05-13] MEDS ORDERED: Iohexol 300 100 ML IJ ONE (19:55)
[2018-05-13] MEDS ORDERED: Sodium Chloride 0.9% 50 ML IV ONE (19:56)
[2018-05-13 20:06] LABS: PROTHROMBIN TIME 11.3 Seconds (9.8-13.1)
[2018-05-13 20:08] LABS: PARTIAL THROMBOPLASTIN TIME 34.7 Seconds (25.6-37.1)
[2018-05-13 20:57] VITALS: RESP 16
[2018-05-13 22:26] VITALS: BP 134/67; PULSE 70
[2018-05-13 22:45] VITALS: O2SAT 99
--- NOTE | 2018-05-14 06:40 | CARD ---
APPROVED REPORT Date of service: 05/13/2018 EKG Measurement Heart [id number] <Conclusion> Normal sinus rhythm Normal ECG
--- NOTE | 2018-05-14 08:04 | RAD ---
Date of service: 05/13/2018 PROCEDURE: CHEST RADIOGRAPH, 1 VIEW HISTORY: Abd pain COMPARISON: Chest radiographs 02/14/2017. FINDINGS: LUNGS: No acute pulmonary disease appreciated bilaterally. PLEURA: No pneumothorax or pleural fluid seen. CARDIOVASCULAR: Normal. OSSEOUS STRUCTURES: No significant abnormalities. VISUALIZED UPPER ABDOMEN: Stable, mammilated hemidiaphragms are identified bilaterally. OTHER FINDINGS: Surgical clips reiterated left axilla. IMPRESSION: No interval acute cardiopulmonary disease appreciated.
--- NOTE | 2018-05-14 08:04 | CT ---
EXAM: CT Abdomen and Pelvis With Intravenous Contrast CLINICAL HISTORY: 82 years old, female; Pain; Abdominal pain; Localized; Right lower quadrant (rlq); Additional info: Blq pain, lgib TECHNIQUE: Axial computed tomography images of the abdomen and pelvis with intravenous contrast. All CT scans at this facility use at least one of these dose optimization techniques: automated exposure control; mA and/or kV adjustment per patient size (includes targeted exams where dose is matched to clinical indication); or iterative reconstruction. Coronal and sagittal reformatted images were created and reviewed. CONTRAST: 95 mL of OMNIPAQUE-300 administered intravenously. COMPARISON: No relevant prior studies available. FINDINGS: Lung bases: Dependent lung atelectasis. ABDOMEN: Liver: Intact. No mass. Gallbladder and bile ducts: Cholecystectomy. No ductal dilation. Pancreas: No mass. No ductal dilation. Spleen: No splenomegaly. Adrenals: No mass. Kidneys and ureters: Right kidney anterior mid pole cyst approximately 3 cm appeared no right or left hydronephrosis. Stomach and bowel: Moderate diverticuli are seen in the sigmoid and/or descending colon. No pericolonic stranding is seen to suggest diverticulits. PELVIS: Appendix: No findings to suggest acute appendicitis. Appendix not seen. Bladder: No mass. Reproductive: Unremarkable as visualized. ABDOMEN and PELVIS: Intraperitoneal space: No free air. No significant fluid collection. Bones/joints: No acute fracture. No dislocation. Soft tissues: No radiopaque foreign body. Vasculature: Moderate abdominal aorta vascular calcifications. Attack at tortuosity mid to distal common aorta measuring up to 2.5 cm. Lymph nodes: No enlarged lymph nodes. IMPRESSION: 1. Moderate diverticuli are seen in the sigmoid and/or descending colon. No pericolonic stranding is seen to suggest diverticulits. 2. No acute inflammatory changes in abdomen or pelvis.
== END 2018-05-13 23:01 | disposition home or self-care (01) ==
LOC: H.ER 16:49
DX: K57.90 Diverticulosis of intestine, part unspecified, without perforation or abscess without bleeding (principal); E03.9 Hypothyroidism, unspecified; E11.9 Type 2 diabetes mellitus without complications; E78.00 Pure hypercholesterolemia, unspecified; I10 Essential (primary) hypertension; Z79.84 Long term (current) use of oral hypoglycemic drugs
CPT/HCPCS: 71045; 74177; 80053; 85025; 85610; 85730; 86850; 86900; 93005; 96374; 99284; G0328; J2270; Q9967